=== PATIENT | male | born 1970 | race African-American/Black ===

== ENCOUNTER → 2019-01-22 | Outpatient (CLI) | payer MEDICARE ==
--- NOTE | 2019-01-22 17:42 | RADIOLOGY REPORT (SQ) ---
EXAM DESCRIPTION: CERV SP 4 OR 5 VIEWS COMPLETED DATE/TIME: 01/22/2019 5:07 pm REASON FOR STUDY: NECK PAIN COMPARISON: None. NUMBER OF VIEWS: Five views. TECHNIQUE: AP, lateral, obliques and odontoid radiographic images acquired of the cervical spine. LIMITATIONS: None. FINDINGS: MINERALIZATION: Normal. ALIGNMENT: Anatomic. VERTEBRAE: Vertebral bodies of normal height. DISCS: No significant osteophytes or sclerosis. Disc height maintained. FORAMINA: No osteophytes or foraminal narrowing. LATERAL AND POSTERIOR ELEMENTS: Facets, lateral masses and spinous processes without significant find ings. HARDWARE: None in the spine. SOFT TISSUES: No masses or calcifications. Lung apices clear. OTHER: No other significant finding. IMPRESSION: NO SIGNIFICANT RADIOGRAPHIC FINDING IN THE CERVICAL SPINE. TECHNICAL DOCUMENTATION: JOB ID: [id number] [employer]- All Rights Reserved Reading location - IP/workstation name: [email or web address]
== END ==
LOC: RAD 16:33
PROVIDERS: ATTEND Physical Medicine & Rehabilitation
DX: M54.2 Cervicalgia (principal)
CPT/HCPCS: 72050

== ENCOUNTER 2020-05-10 22:55 | Observation (INO) | payer MEDICARE, MEDICAID ==
[2020-05-10] MEDS ORDERED: NITROGLYCERIN/D5W 50 MG/250 ML RTUINJ IV PRN (23:29)
--- NOTE | 2020-05-10 23:33 | ER Document Report ---
ED Respiratory Problem - General Chief Complaint: Respiratory Distress Stated Complaint: RESPIRATORY DISTRESS Time Seen by Provider: 05/10/20 23:19 Notes: Patient is a 50-year-old male that comes emergency department by EMS for chief complaint of respiratory distress. Patient states that he was putting on his CPAP when he suddenly felt like he could not breathe at all, EMS reports that patient was tripoding, diaphoretic, initial oxygen saturation was 68% on room air, initial blood pressure was 240s systolic. Patient was given 2 sublingual nitroglycerin, placed on CPAP, placed on nitroglycerin drip, and he was transitioned to BiPAP here in the emergency department. However patient has rapidly improved, he states now his breathing is back to normal while on the BiPAP, he denies any current complaints. He denies chest pain, fever, cough, or any sick contacts. He is on multiple medications for blood pressure including carvedilol and lisinopril, he is on metformin for "borderline diabetes", he has a history of obesity and GEORGE. He denies smoking, alcohol, recreational drugs, CAD, ME, CHF, or history of the same. TRAVEL OUTSIDE OF THE [place] IN LAST 30 DAYS: No Past Medical History - General Information source: Patient - Social History Smoking Status: Former Smoker Frequency of alcohol use: None Drug Abuse: None Lives with: Family Family History: Reviewed & Not Pertinent - Past Medical History Cardiac Medical History: Reports: Hx Hypertension Endocrine Medical History: Reports: Hx Diabetes Mellitus Type 2 - Immunizations Immunizations up to date: Yes Hx Diphtheria, Pertussis, Tetanus Vaccination: Yes Review of Systems - Review of Systems Constitutional: No symptoms reported EENT: No symptoms reported Cardiovascular: See HPI Respiratory: See HPI Gastrointestinal: No symptoms reported Genitourinary: No symptoms reported Male Genitourinary: No symptoms reported Musculoskeletal: No symptoms reported Skin: No symptoms reported Hematologic/Lymphatic: No symptoms reported Neurological/Psychological: No symptoms reported Physical Exam - Vital signs Vitals: Resp Pulse Ox 31 H 99 05/10/20 22:55 05/10/20 22:55 - Notes Notes: GENERAL: Alert, interacts well. Responsive. Patient is morbidly obese. HEAD: Normocephalic, atraumatic. EYES: Pupils equal, round, and reactive to light. Extraocular movements intact. ENT: Oral mucosa moist, tongue midline. Oropharynx unremarkable. Airway patent. NECK: Full range of motion. Supple. Trachea midline. No lymphadenopathy. LUNGS: Tachypnea with slight work of breathing but lungs are clear with no rales, wheezing, or rhonchi. HEART: Regular rate and rhythm. No murmur ABDOMEN: Soft, non-tender. Non-distended. EXTREMITIES: Moves all 4 extremities spontaneously. No edema, normal radial and dorsalis pedis pulses bilaterally. No cyanosis. BACK: no cervical, thoracic, lumbar midline tenderness. No saddle anesthesia, normal distal neurovascular exam. Moves all extremities in full range of motion. NEUROLOGICAL: Alert and oriented x3. Normal speech. Cranial nerves II through XII grossly intact. Strength 5/5 in all extremities. PSYCH: Mildly anxious SKIN: Warm, dry, normal turgor. No rashes or lesions noted. Course - Re-evaluation Re-evalutation: Patient was initially extremely hypertensive, he was hypoxic at 68% on room air per EMS, he is already doing better after sublingual nitroglycerin and on the nitroglycerin drip, he was transitioned to BiPAP here. On BiPAP his work of breathing rapidly improved and then his distress completely resolved. Blood pressure trended down to the into the 160s. Lungs are clear. Patient has no complaints now. CBC, chemistry, troponin, chest x-ray, EKG without acute concerning findings. Overall presentation is most consistent with flash pulmonary edema with his severe hypertension. Discussed with Dr. Oliver. Discussed results with patient at length, patient will be discussed with hospitalist for admission for acute respiratory distress, uncontrolled hype rtension, flash pulmonary edema, hypoxia. Patient states understanding and agreement with plan. Discussed with Dr. Rowe, hospitalist, patient accepted to [facility]. - Vital Signs Vital signs: Temp Pulse Resp BP Pulse Ox 98.7 F 22 H 166/92 H 98 05/10/20 23:25 05/11/20 01:01 05/11/20 01:01 05/11/20 01:01 - Laboratory Result Diagrams: 05/10/20 23:54 05/10/20 23:54 Laboratory results interpreted by me: 05/10/20 05/10/20 05/11/20 23:54 23:54 01:32 RDW 16.8 H Creatinine 1.49 H Est GFR (MDRD) Non-Af 50 L Glucose 150 H Urine Protein 100 H - EKG Interpretation by Me Additional EKG results interpreted by me: EKG shows sinus rhythm at a rate of 85, flattened T waves laterally, no T wave inversions or ST segment changes in consecutive leads. Discharge - Discharge Clinical Impression: Hypoxia, Respiratory distress, Uncontrolled hypertension Condition: Stable Disposition: ADMITTED OBSERVATION Admitting Provider: Jae (Hospitalist) Unit Admitted: [facility]
[2020-05-11 00:12] LABS: ABSOLUTE BASOPHILS # (AUTO) 0.1 10^3/uL (0.0-0.2); ABSOLUTE EOSINOPHILS # (AUTO) 0.2 10^3/uL (0.0-0.6); ABSOLUTE MONOCYTES (AUTO) 0.7 10^3/uL (0.1-1.4); ABSOLUTE NEUT (AUTO) 7.6 10^3/uL (1.7-8.2); BASOPHILS % (AUTO) 0.6 % (0-2); EOSINOPHILS % (AUTO) 1.7 % (0-6); HEMATOCRIT 41.3 % (37.9-51.0); HEMOGLOBIN 13.8 g/dL (13.5-17.0); LYMPHOCYTES % (AUTO) 19.1 % (13-45); MEAN CORPUSCULAR HGB CONC 33.4 g/dL (32.0-36.0); MEAN CORPUSCULAR VOLUME 90 fl (80-97); MONOCYTES % (AUTO) 6.2 % (3-13); PLATELET COUNT 157 10^3/uL (150-450); RED BLOOD COUNT 4.61 10^6/uL (4.35-5.55); RED CELL DISTRIBUTION WIDTH 16.8 % (11.5-14.0); SEGMENTED NEUTROPHILS % (AUTO) 72.4 % (42-78); TOTAL CELLS COUNTED % (AUTO) 100 %; VENOUS BLOOD BASE EXCESS 1.5 mmol/L; VENOUS BLOOD HCO3 28.3 mmol/L (20-32); VENOUS BLOOD PCO2 53.1 mmHg (35-63); VENOUS BLOOD PH 7.34 (7.30-7.42); WHITE BLOOD COUNT 10.5 10^3/uL (4.0-10.5)
[2020-05-11 00:21] LABS: ALBUMIN 3.9 g/dL (3.5-5.0); ALKALINE PHOSPHATASE 106 U/L (38-126); ANION GAP 5 (5-19); ASPARTATE AMINO TRANSFERASE 24 U/L (17-59); BLOOD UREA NITROGEN 16 mg/dL (7-20); CALCIUM 8.6 mg/dL (8.4-10.2); CARBON DIOXIDE 29 mmol/L (22-30); CHLORIDE 105 mmol/L (98-107); GLUCOSE 150 mg/dL (75-110); POTASSIUM 3.6 mmol/L (3.6-5.0)
[2020-05-11 00:32] LABS: NT PRO BNP 44 pg/mL (<125)
[2020-05-11 00:36] LABS: TROPONIN I < 0.012 ng/mL
--- NOTE | 2020-05-11 00:53 | RADIOLOGY REPORT (SQ) ---
EXAM DESCRIPTION: X-ray single view chest. CLINICAL HISTORY: 50 years Male, shortness of breath, hypoxia COMPARISON: None. TECHNIQUE: Single portable x-ray view of the chest performed on 05/11/2020 at 12:14 AM FINDINGS: The lungs are well expanded and are clear. There is no evidence of a pneumothorax. The cardiac silhouette is prominent and may be accentuated by the portable technique. The mediastinal contours are normal. No acute osseous abnormality is identified. No focal soft tissue abnormalities are seen. Lines and tubes: None. IMPRESSION: No definite acute intrathoracic disease.
[2020-05-11 02:12] LABS: APPEARANCE,URINE CLEAR; BILIRUBIN,URINE NEGATIVE (NEGATIVE); COLOR,URINE YELLOW; GLUCOSE, URINE NEGATIVE (NEGATIVE); KETONES,URINE NEGATIVE (NEGATIVE); LEUKOCYTE ESTERASE,URINE NEGATIVE (NEGATIVE); NITRITE,URINE NEGATIVE (NEGATIVE); PROTEIN,URINE 100 mg/dL (NEGATIVE); URINE SPECIFIC GRAVITY 1.013; UROBILINOGEN,URINE NEGATIVE mg/dL (<2.0)
[2020-05-11] MEDS ORDERED: LORAZEPAM INJ 2 MG/1 ML VIAL IV ONE (03:53)
[2020-05-11] MEDS ORDERED: NITROGLYCERIN 2% OINTMENT 1 GM PACKET TP ONE (04:23)
[2020-05-11] MEDS ORDERED: MORPHINE SULFATE 10 MG/ML INJ IV PRN ×4 (05:06→06:37)
[2020-05-11] MEDS ORDERED: METOPROLOL TARTRATE PF/INJ 5 MG/5 ML SDV IV PRN (05:06)
[2020-05-11] MEDS ORDERED: MELATONIN 5 MG TABLET PO PRN (05:06)
[2020-05-11] MEDS ORDERED: LORAZEPAM INJ 2 MG/1 ML VIAL IV PRN (05:06)
[2020-05-11] MEDS ORDERED: GUAIFENESIN SYRP 200 MG/10 ML UDC PO PRN (05:06)
[2020-05-11] MEDS ORDERED: PROMETHAZINE HCL INJ 25 MG/1 ML VIAL IV PRN (05:06)
[2020-05-11] MEDS ORDERED: ACETAMINOPHEN 325 MG TABLET PO PRN (05:06)
[2020-05-11] MEDS ORDERED: GLUCAGON,HUMAN RECOMB 1 MG INJ IM PRN (05:07)
[2020-05-11] MEDS ORDERED: DEXTROSE 50%-WATER 25 GM/50 ML DISP.SYRIN IV PRN ×2 (05:07)
[2020-05-11] MEDS ORDERED: DEXTROSE 40% GEL 15 GM TUBE PO PRN ×2 (05:07)
--- NOTE | 2020-05-11 07:14 | PDOC H&P ---
History of Present Illness Admission Date/PCP: 05/11/2020 04:26 No local PCP Patient complains of: Dyspnea History of Present Illness: CATALINA ALBA is a 50 year old male who presented to the emergency room via EMS with acute dyspnea. He admits while he was putting on his CPAP at home for the night he suddenly felt severely dyspneic and could not breathe. He admits accompanying diaphoresis and associated with orthopnea and the need for the use of accessory muscles of respiration in order to breathe. This dyspnea is worsened by any activity or exertion. He denies other associated or a ccompanying signs and symptoms. He denies prior similar episodes. He has not identified any additional aggravating or ameliorating factors for his dyspnea. His dyspnea was improved by supplemental oxygen, CPAP, sublingual nitroglycerin and a nitroglycerin infusion provided by EMS. He had been noted to be hypoxic with an O2 sat of 68% on room air upon EMS arrival. EMS also noted that his blood pressure was 240 systolic initially. By the time he arrived to the emergency room he had improved considerably. In the ER he was converted to BiPAP and his symptoms resolved. His initial cardiac enzymes were negative and his EKG showed no evidence of acute cardiac injury or ischemia. He was sub sequently admitted to observation status for further evaluation treatment. Past Medical History Cardiac Medical History: Reports: Hypertension Denies: Coronary Artery Disease, Myocardial Infarction Pulmonary Medical History: Reports: Sleep Apnea Denies: Asthma, Chronic Obstructive Pulmonary Disease (COPD) EENT Medical History: Denies: Cataracts, Ears - Hearing aids Neurological Medical History: Denies: Hemorrhagic CVA, Ischemic CVA, Seizures Endocrine Medical History: Reports: Diabetes Mellitus Type 2 - "Borderline", Obesity Denies: Diabetes Mellitus Type 1, Hyperthyroidism, Hypothyroidism Renal/ Medical History: Denies: Chronic Kidney Disease, Nephrolithiasis Malignancy Medical History: Reports: None GI Medical History: Denies: Cirrhosis, Hepatitis Musculoskeltal Medical History: Denies: Arthritis, Gout Skin Medical History: Denies: Eczema, Psoriasis Psychiatric Medical History: Denies: Alcohol Dependency, Substance Abuse, Tobacco Dependency Traumatic Medical History: Reports: None Hematology: Denies: Anemia, Hemophilia Infectious Medical History: Reports: None Past Surgical History Past Surgical History: Reports: None Social History Information Source: Patient Lives with: Spouse/Significant other Smoking Status: Former Smoker Electronic Cigarette use?: No Frequency of Alcohol Use: None Hx Recreational Drug Use: No Drugs: None Hx Prescription Drug Abuse: No - Advance Directive Resuscitation Status: Full Code Surrogate healthcare decision maker:: Arabella Alba Family History Family History: DM, Hypertension. denies: CAD, Malignancy Parental Family History Reviewed: Yes Children Family History Reviewed: No Sibling(s) Family History Reviewed.: Yes Review of Systems Constitutional: ABSENT: chills, fever(s) Eyes: ABSENT: visual disturbances, other - Eye pain Ears: ABSENT: hearing changes, other - Ear pain Nose, Mouth, and Throat: ABSENT: headache(s), sore throat Cardiovascular: PRESENT: orthropnea. ABSENT: chest pain, palpitations Respiratory: PRESENT: dyspnea Gastrointestinal: ABSENT: abdominal pain, constipation, diarrhea, nausea, vomiting Genitourinary: ABSENT: dysuria, hematuria Musculoskeletal: ABSENT: back pain, joint swelling Integumentary: ABSENT: pruritus, rash Neurological: ABSENT: confusion, convulsions, focal weakness, memory loss, syncope Psychiatric: ABSENT: anxiety, depression Endocrine: ABSENT: cold intolerance, heat intolerance Hematologic/Lymphatic: ABSENT: easy bleeding, easy bruising Allergic/Immunologic: ABSENT: seasonal rhinorrhea Physical Exam Vital Signs: Temp Pulse Resp BP Pulse Ox 98.7 F 22 H 166/92 H 98 05/10/20 23:25 05/11/20 01:01 05/11/20 01:01 05/11/20 01:01 Intake & Output 05/09/20 05/10/20 05/11/20 23:59 23:59 23:59 Weight 191.2 kg General appearance: PRESENT: no acute distress, cooperative, morbidly obese Head exam: PRESENT: atraumatic, normocephalic Eye exam: PRESENT: conjunctiva pink. ABSENT: conjunctival injection, scleral icterus Ear exam: PRESENT: normal external ear exam. ABSENT: bleeding, drainage Mouth exam: PRESENT: dry mucosa, neck supple Neck exam: ABSENT: thyromegaly, tracheal deviation Respiratory exam: PRESENT: clear to auscultation raad, symmetrical, unlabored Cardiovascular exam: PRESENT: RRR. ABSENT: clicks, gallop, rubs Pulses: PRESENT: normal radial pulses, normal dorsalis pedis pul Vascular exam: PRESENT: normal capillary refill. ABSENT: pallor GI/Abdominal exam: PRESENT: normal bowel sounds, soft Rectal exam: PRESENT: deferred Extremities exam: ABSENT: joint swelling, pedal edema Musculoskeletal exam: ABSENT: deformity, dislocation Neurological exam: PRESENT: alert, oriented to person, oriented to place, oriented to time, oriented to situation, CN II-XII grossly intact. ABSENT: motor sensory deficit Psychiatric exam: PRESENT: appropriate affect, normal mood Skin exam: PRESENT: dry, intact, warm. ABSENT: jaundice, rash, urticaria Results Laboratory Results: 05/10/20 23:54 05/10/20 23:54 05/10/20 05/10/20 05/10/20 23:54 23:54 23:54 WBC 10.5 RBC 4.61 Hgb 13.8 Hct 41.3 MCV 90 MCH 30.0 MCHC 33.4 RDW 16.8 H Plt Count 157 Seg Neutrophils % 72.4 VBG pH 7.34 VBG pCO2 53.1 VBG HCO3 28.3 VBG Base Excess 1.5 Sodium 138.9 Potassium 3.6 Chloride 105 Carbon Dioxide 29 Anion Gap 5 BUN 16 Creatinine 1.49 H Est GFR ( Amer) > 60 Glucose 150 H Calcium 8.6 Total Bilirubin 1.0 AST 24 Alkaline Phosphatase 106 Total Protein 7.0 Albumin 3.9 Urine Color Urine Appearance Urine pH Ur Specific Parshall Urine Protein Urine Glucose (UA) Urine Ketones Urine Blood Urine Nitrite Ur Leukocyte Esterase Urine WBC (Auto) Urine RBC (Auto) 05/11/20 01:32 WBC RBC Hgb Hct MCV MCH MCHC RDW Plt Count Seg Neutrophils % VBG pH VBG pCO2 VBG HCO3 VBG Base Excess Sodium Potassium Chloride Carbon Dioxide Anion Gap BUN Creatinine Est GFR ( Amer) Glucose Calcium Total Bilirubin AST Alkaline Phosphatase Total Protein Albumin Urine Color YELLOW Urine Appearance CLEAR Urine pH 5.0 Ur Specific Parshall 1.013 Urine Protein 100 H Urine Glucose (UA) NEGATIVE Urine Ketones NEGATIVE Urine Blood NEGATIVE Urine Nitrite NEGATIVE Ur Leukocyte Esterase NEGATIVE Urine WBC (Auto) 2 Urine RBC (Auto) 0 05/10/20 23:54 Troponin I < 0.012 NT-Pro-B Natriuret Pep 44 Impressions: Chest X-Ray 05/10/20 23:28 IMPRESSION: No definite acute intrathoracic disease. Assessment and Plan - Diagnosis (1) Acute respiratory failure with hypoxia Is this a current diagnosis for this admission?: Yes (2) Acute pulmonary edema with congestive heart failure Is this a current diagnosis for this admission?: Yes (3) Uncontrolled hypertension Is this a current diagnosis for this admission?: Yes (4) Obstructive sleep apnea on CPAP Is this a current diagnosis for this admission?: Yes (5) Morbid obesity with BMI of 50.0-59.9, adult Is this a current diagnosis for this admission?: Yes - Plan Summary Summary: Patient is admitted to observation status on the [facility] where he will receive routine supportive and symptomatic cares. He will be admitted on the congestive heart failure protocol. Dr. Omer will be consulted for cardiology evaluation and a echocardiogram will be obtained. Patient will be treated with morphine sulfate 2 mg IV every hour as needed severe dyspnea (acute pulmonary edema). He will be maintained on nitroglycerin 2% ointment 1 inch every 6 hours. He will additionally receive appropriate antihypertensive/congestive heart failure therapy. Before meals and at bedtime Accu-Cheks will be obtained with sliding scale insulin for hyperglycemia and a hypoglycemic protocol in place. He will receive supplemental oxygen utilizing nasal cannula with use of noninvasive airway pressure support devices as needed to maintain adequate oxygen saturation. Patient will be continued on CPAP at night and while resting during the day. Serial cardiac enzymes will be obtained. A BNP, thyroid profile, lipid profile and hemoglobin A1c will be obtained. CBCs, metabolic profiles and magnesium levels will be obtained as needed. Additional laboratory and/or radiographic evaluations will be obtained as appropriate. - Time Time Spent with patient: 15-24 minutes Medications reviewed and adjusted accordingly: Yes Anticipated discharge: Home with Homehealth Within: within 48 hours - Inpatient Certification Based on my medical assessment, after consideration of the patient's comorbidities, presenting symptoms, or acuity I expect that the services needed warrant INPATIENT care.: No I certify that my determination is in accordance with my understanding of Medicare's requirements for reasonable and necessary INPATIENT services [42 CFR 412.3e].: No
[2020-05-11] MEDS: NITROGLYCERIN 2% OINTMENT 1 GM PACKET TP SCH ×2 (07:39→11:45)
[2020-05-11] MEDS: HEPARIN SOD (PORCINE) 5,000 UNIT/ML 1 ML VIAL SUBCUT SCH ×3 (07:40→21:10)
[2020-05-11] MEDS: HYDRALAZINE HCL INJ/PF 20 MG/1 ML SDV IV PRN ×3 (07:40→23:10)
--- NOTE | 2020-05-11 07:47 | EKG REPORT ---
SEVERITY:- ABNORMAL ECG - SINUS RHYTHM NONSPECIFIC T ABNORMALITIES, LATERAL LEADS : Confirmed by: Duncan Friedman MD 11-May-2020 07:47:25
[2020-05-11 08:31] LABS: CREATINE KINASE MB 1.43 ng/mL (<4.55); TROPONIN I 0.015 ng/mL
[2020-05-11] MEDS: INSULIN REG, HUMAN 100 UNIT/ML 3 ML VIAL (PYX) SUBCUT SCH ×4 (08:44→21:00)
[2020-05-11] MEDS ORDERED: LISINOPRIL 10 MG TABLET PO SCH ×2 (10:00→15:00)
[2020-05-11] MEDS: METOPROLOL SUCCINATE 50 MG TAB.SR.24H PO SCH ×2 (10:01→21:08)
[2020-05-11] MEDS: CLOPIDOGREL BISULFATE 75 MG TABLET PO SCH (10:01)
[2020-05-11] MEDS: FAMOTIDINE 20 MG TABLET PO SCH ×2 (10:01→21:08)
[2020-05-11 11:56] LABS: CREATINE KINASE MB 1.45 ng/mL (<4.55)
[2020-05-11 11:57] LABS: TROPONIN I < 0.012 ng/mL
[2020-05-11] MEDS ORDERED: HYDROXYZINE PAMOATE 50 MG CAPSULE PO PRN (14:03)
[2020-05-11] MEDS: OXYCODONE-ACETAMINOPHEN 5-325 MG TABLET PO SCH ×3 (14:26→21:05)
[2020-05-11] MEDS: OXYCODONE HCL IR 5 MG TABLET PO SCH ×3 (15:38→21:06)
[2020-05-11 16:10] LABS: CREATINE KINASE MB 1.69 ng/mL (<4.55)
[2020-05-11 16:12] LABS: TROPONIN I < 0.012 ng/mL
[2020-05-11] MEDS ORDERED: SIMETHICONE 80 MG TAB.CHEW PO ONE (16:30)
--- NOTE | 2020-05-11 17:07 | XCELERA REPORT ---
[address] [address] Transthoracic Echocardiogram Report Name: CATALINA ALBA Age: 50 yrs Gender: Male : 1970 Patient Status: [facility] Date: 05/11/2020 10:31 AM Height: 71 in Weight: 421 lb BSA: 2.9 m2 Procedure: A complete two-dimensional transthoracic echocardiogram was performed (2D, M-mode, spectral and color flow Doppler). The study was technically difficult with many images being suboptimal in quality. Limited views due to increased patient body habitus. Reason For Study: Acute pulmonary edema with congestive heart failur Ordering Physician: EMIL MUSTAFA Performed By: Edwina Mo Interpretation Summary Technically limited study with suboptimal windows. The left ventricle is moderately dilated. The left ventricular ejection fraction is normal. The Ejection Fraction estimate is 55-60%. Doppler measurements suggest normal left ventricular diastolic function. Regional wall motion abnormalities cannot be excluded due to limited visualization. Valvular structures are not well visualized. Right VentricleSmall, hemodynamically insignificant anterior pericardial effusion. No prior studies for comparison. MMode/2D Measurements & Calculations RVDd: 2.2 cm LVIDd: 6.2 cm FS: 37.2 % Ao root diam: 3.1 cm IVSd: 1.3 cm LVIDs: 3.9 cm EDV(Teich): 192.6 ml Ao root area: 7.8 cm2 LVPWd: 1.3 cm ESV(Teich): 65.1 ml LA dimension: 4.0 cm EF(Teich): 66.2 % Doppler Measurements & Calculations MV E max jose: MV P1/2t max jose: Ao V2 max: LV V1 max P.2 cm/sec 102.2 cm/sec 180.3 cm/sec 7.9 mmHg MV A max jose: MV P1/2t: 60.7 msec Ao max PG: LV V1 max: 87.9 cm/sec MVA(P1/2t): 3.6 cm2 13.0 mmHg 140.2 cm/sec MV E/A: 1.2 MV dec slope: 493.1 cm/sec2 MV dec time: 0.20 sec PA V2 max: MV P1/2t-pr_phl: 111.1 cm/sec 60.7 msec PA max P.9 mmHg Left Ventricle The left ventricle is moderately dilated. The left ventricular ejection fraction is normal. The Ejection Fraction estimate is 55-60%. Doppler measurements suggest normal left ventricular diastolic function. Regional wall motion abnormalities cannot be excluded due to limited visualization. Right Ventricle The right ventricle is not well visualized secondary to technical limitations. Atria Right atrium not well visualized secondary to technical limitations. Borderline left atrial enlargement. A patent foramen ovale is suspected. Mitral Valve The mitral valve is not well visualized. There is no evidence of mitral valve prolapse. There is no mitral valve stenosis. Aortic Valve The aortic valve is not well visualized secondary to technical limitations. There is no aortic valve stenosis. No aortic regurgitation is present. Tricuspid Valve The tricuspid valve is not well visualized secondary to technical limitations. Can not exclude trace TR. Pulmonic Valve The pulmonic valve is not well visualized. Can not exclude IL. Effusions Small, hemodynamically insignificant anterior pericardial effusion. : EMIL MUSTAFA Antonio
[2020-05-11] MEDS ORDERED: FUROSEMIDE INJ/PF 20 MG/2 ML SDV IV ONE (17:30)
[2020-05-11] MEDS: METFORMIN HCL 500 MG TABLET PO SCH (17:38)
[2020-05-11] MEDS: BUPROPION HCL 75 MG TABLET PO SCH (17:38)
[2020-05-11] MEDS ORDERED: (PENDING PHARMACY ID) (Oxycodone Hcl/Acetaminophen [Percocet 10-325 Mg Tablet] 1 EACH) PO SCH (18:00)
--- NOTE | 2020-05-11 18:10 | EKG REPORT ---
SEVERITY:- BORDERLINE ECG - SINUS RHYTHM NONSPECIFIC ST-T CHANGES- INFERIOR LEADS : Confirmed by: Duncan Friedman MD 11-May-2020 18:08:59
[2020-05-11 18:35] LABS: TROPONIN I < 0.012 ng/mL
[2020-05-11] MEDS ORDERED: ALBUTEROL SULFATE 0.083% NEB 2.5 MG/3 ML AMPUL NEB PRN (18:51)
--- NOTE | 2020-05-11 18:55 | Progress Note ---
Provider Note Provider Note: Is a 50-year-old male with a past medical history of hypertension, sleep apnea (utilizes CPAP machine), DM 2, morbid obesity who was admitted early this morning by the decatizer for Acute respiratory failure with hypoxia, hypertensive urgency, and presumed pulmonary edema related to CHF exacerbation. Overnight events, vital signs, laboratory results, imaging, H&P, and orders reviewed. Agree with the plan of care as established by the previous provider. In addition: Echocardiogram reveals LVEF 55 to 60% without significant LV diastolic dysfunction. Discontinue nitroglycerin paste secondary to persistent headache. Resumed home medication regiment including lisinopril/HCTZ and losartan for blood pressure management. One-time dose of IV furosemide. Resume home dose metformin Home dose Wellbutrin, Home dose oxycodone Home dose Singulair. Start scheduled and as needed nebulizer treatments.
[2020-05-11] MEDS: IPRATROPIUM/ALBUTEROL 0.5-2.5 MG/3 ML AMPUL NEB SCH (20:55)
[2020-05-12] MEDS: IPRATROPIUM/ALBUTEROL 0.5-2.5 MG/3 ML AMPUL NEB SCH ×4 (02:13→20:41)
[2020-05-12] MEDS: HEPARIN SOD (PORCINE) 5,000 UNIT/ML 1 ML VIAL SUBCUT SCH ×3 (05:59→21:52)
[2020-05-12 06:43] LABS: ABSOLUTE EOSINOPHILS # (AUTO) 0.3 10^3/uL (0.0-0.6); ABSOLUTE LYMPHOCYTES (AUTO) 2.5 10^3/uL (0.5-4.7); ABSOLUTE MONOCYTES (AUTO) 0.7 10^3/uL (0.1-1.4); ABSOLUTE NEUT (AUTO) 8.2 10^3/uL (1.7-8.2); BASOPHILS % (AUTO) 0.4 % (0-2); EOSINOPHILS % (AUTO) 2.2 % (0-6); HEMOGLOBIN 14.5 g/dL (13.5-17.0); LYMPHOCYTES % (AUTO) 21.5 % (13-45); MEAN CORPUSCULAR HEMOGLOBIN 29.6 pg (27.0-33.4); MEAN CORPUSCULAR HGB CONC 32.9 g/dL (32.0-36.0); MEAN CORPUSCULAR VOLUME 90 fl (80-97); MONOCYTES % (AUTO) 5.9 % (3-13); PLATELET COUNT 166 10^3/uL (150-450); RED BLOOD COUNT 4.89 10^6/uL (4.35-5.55); RED CELL DISTRIBUTION WIDTH 16.9 % (11.5-14.0); TOTAL CELLS COUNTED % (AUTO) 100 %; WHITE BLOOD COUNT 11.7 10^3/uL (4.0-10.5)
[2020-05-12 06:59] LABS: ANION GAP 7 (5-19); BLOOD UREA NITROGEN 17 mg/dL (7-20); CALCIUM 9.3 mg/dL (8.4-10.2); CARBON DIOXIDE 27 mmol/L (22-30); CHLORIDE 106 mmol/L (98-107); CHOLESTEROL 142.57 mg/dL (0-200); GLUCOSE 124 mg/dL (75-110); POTASSIUM 4.2 mmol/L (3.6-5.0); TRIGLYCERIDES 98 mg/dL (<150)
[2020-05-12 07:09] LABS: DIRECT LDL 75 mg/dL (<100)
[2020-05-12 07:15] LABS: FREE T3 4.23 pg/mL (2.77-5.27)
[2020-05-12 07:29] LABS: THYROID STIMULATING HORMONE 1.77 uIU/mL (0.47-4.68)
[2020-05-12] MEDS ORDERED: (PENDING PHARMACY ID) (Bupropion Hcl [Bupropion Xl] 150 MG) PO SCH (08:00)
[2020-05-12] MEDS: INSULIN REG, HUMAN 100 UNIT/ML 3 ML VIAL (PYX) SUBCUT SCH ×4 (08:44→21:56)
[2020-05-12] MEDS: LISINOPRIL 10 MG TABLET PO SCH (09:31)
[2020-05-12] MEDS: FAMOTIDINE 20 MG TABLET PO SCH ×2 (09:31→21:56)
[2020-05-12] MEDS: METOPROLOL SUCCINATE 50 MG TAB.SR.24H PO SCH ×2 (09:31→21:54)
[2020-05-12] MEDS: METFORMIN HCL 500 MG TABLET PO SCH ×2 (09:31→18:17)
[2020-05-12] MEDS: MONTELUKAST SODIUM 10 MG TABLET PO SCH (09:32)
[2020-05-12] MEDS: HYDROCHLOROTHIAZIDE 12.5 MG TABLET PO SCH (09:32)
[2020-05-12] MEDS: CLOPIDOGREL BISULFATE 75 MG TABLET PO SCH (09:32)
[2020-05-12] MEDS: BUPROPION HCL 75 MG TABLET PO SCH ×2 (09:32→18:17)
[2020-05-12] MEDS: POTASSIUM CHLORIDE 10 MEQ TABLET.ER PO SCH (09:32)
[2020-05-12] MEDS: ATORVASTATIN CALCIUM 40 MG TABLET PO SCH (09:32)
[2020-05-12] MEDS: OXYCODONE-ACETAMINOPHEN 5-325 MG TABLET PO SCH ×4 (09:34→21:55)
[2020-05-12] MEDS: OXYCODONE HCL IR 5 MG TABLET PO SCH ×4 (09:35→21:52)
[2020-05-12] MEDS ORDERED: (PENDING PHARMACY ID) (Potassium Citrate [Potassium Citrate Er] 10 MEQ) PO SCH (10:00)
[2020-05-12] MEDS ORDERED: (PENDING PHARMACY ID) (Lisinopril/Hydrochlorothiazide [Lisinopril-Hctz 20-12.5 Mg Tab] 1 E PO SCH (10:00)
[2020-05-12] MEDS ORDERED: LISINOPRIL 10 MG TABLET PO SCH (10:00)
[2020-05-12] MEDS ORDERED: (PENDING PHARMACY ID) (Metformin Hcl [Metformin Hcl Er] 500 MG) PO SCH (10:00)
[2020-05-12] MEDS ORDERED: ALBUTEROL SULFATE 0.083% NEB 2.5 MG/3 ML AMPUL NEB PRN (10:53)
--- NOTE | 2020-05-12 11:52 | PDOC PROGRESS REPORT ---
Subjective Progress Note for:: 05/12/20 Subjective:: Patient states his breathing is a little bit better today. Still has dyspnea on exertion. Denies any chest pain. States that he has never smoked in his life. States his mother has a history of COPD but he does not carry any COPD diagnosis. Reason For Visit: ACUTE RESPIRATORY FAILURE WITH HYPOXIA,ACUTE Physical Exam Vital Signs: Temp Pulse Resp BP Pulse Ox 98.2 F 59 L 19 138/66 H 100 05/12/20 11:21 05/12/20 11:21 05/12/20 11:21 05/12/20 11:21 05/12/20 11:21 Intake & Output 05/11/20 05/12/20 05/13/20 06:59 06:59 06:59 Intake Total 250 2070 Output Total 2295 350 Balance 250 -225 -350 Weight 191.2 kg 185.9 kg General appearance: PRESENT: no acute distress, cooperative, morbidly obese, well-nourished Head exam: PRESENT: normocephalic Neck exam: ABSENT: JVD Respiratory exam: PRESENT: clear to auscultation raad, decreased breath sounds, symmetrical, unlabored. ABSENT: tachypnea, wheezes GI/Abdominal exam: PRESENT: normal bowel sounds, soft. ABSENT: rebound, rigid, tenderness Extremities exam: PRESENT: pedal edema Neurological exam: PRESENT: alert, awake, oriented to person, oriented to place, oriented to time Psychiatric exam: ABSENT: agitated, anxious Results Laboratory Results: 05/12/20 05:33 05/12/20 05:33 05/12/20 05/12/20 05/12/20 05:33 05:33 05:33 WBC 11.7 H RBC 4.89 Hgb 14.5 Hct 44.0 MCV 90 MCH 29.6 MCHC 32.9 RDW 16.9 H Plt Count 166 Seg Neutrophils % 70.0 Sodium 139.9 Potassium 4.2 Chloride 106 Carbon Dioxide 27 Anion Gap 7 BUN 17 Creatinine 1.32 H Est GFR ( Amer) > 60 Glucose 124 H Calcium 9.3 Magnesium 2.2 Triglycerides 98 Cholesterol 142.57 LDL Cholesterol Direct 75 VLDL Cholesterol 20.0 HDL Cholesterol 47 TSH 1.77 Free T3 pg/mL 4.23 05/10/20 05/11/20 05/11/20 23:54 07:15 07:15 Creatine Kinase 202 H CK-MB (CK-2) 1.43 Troponin I < 0.012 0.015 NT-Pro-B Natriuret Pep 44 05/11/20 05/11/20 05/11/20 11:06 11:06 14:42 Creatine Kinase 195 H 231 H CK-MB (CK-2) 1.45 Troponin I < 0.012 NT-Pro-B Natriuret Pep 05/11/20 05/11/20 05/11/20 14:42 17:50 17:50 Creatine Kinase 246 H CK-MB (CK-2) 1.69 1.80 Troponin I < 0.012 < 0.012 NT-Pro-B Natriuret Pep 05/12/20 05:33 Creatine Kinase CK-MB (CK-2) Troponin I NT-Pro-B Natriuret Pep 48 Impressions: Chest X-Ray 05/10/20 23:28 IMPRESSION: No definite acute intrathoracic disease. Assessment and Plan - Diagnosis (1) Respiratory distress Is this a current diagnosis for this admission?: Yes (2) Hypoxia Is this a current diagnosis for this admission?: Yes (3) Morbid obesity with BMI of 50.0-59.9, adult Is this a current diagnosis for this admission?: Yes (4) Obstructive sleep apnea on CPAP Is this a current diagnosis for this admission?: Yes (5) Uncontrolled hypertension Is this a current diagnosis for this admission?: Yes - Plan Summary Summary: Patient was admitted for treatment of respiratory distress with hypoxia. He was initially started on diuretics IV with suspicion of CHF. However, I have reviewed patient's echo done yesterday which, though suboptimal and highly limited in terms of visualization of structures, seems to show normal left ventricular systolic and diastolic function. Also BNP is 48 which essentially rules out congestive heart failure. Chest x-ray is negative for any airspace disease or pulmonary edema. I have discontinued diuretics. Patient has family history of COPD but denies any personal history of COPD or smoking. I believe the patient likely has obesity hypoventilation syndrome which is the cause of patient's dyspnea, fatigue and possibly his hypoxia as well. I will check a complete pulmonary function test with suspicion of restrictive lung disease playing a role here. Continue CPAP for patient's GEORGE. Continue inhalers. We will attempt to wean nasal cannula. Continue antihypertensives. - Time Time Spent with patient: Less than 15 minutes
[2020-05-13] MEDS: IPRATROPIUM/ALBUTEROL 0.5-2.5 MG/3 ML AMPUL NEB SCH ×2 (01:14→08:10)
[2020-05-13] MEDS: HEPARIN SOD (PORCINE) 5,000 UNIT/ML 1 ML VIAL SUBCUT SCH (06:42)
[2020-05-13] MEDS: LISINOPRIL 10 MG TABLET PO SCH (10:10)
[2020-05-13] MEDS: HYDROCHLOROTHIAZIDE 12.5 MG TABLET PO SCH (10:11)
[2020-05-13] MEDS: ATORVASTATIN CALCIUM 40 MG TABLET PO SCH (10:11)
[2020-05-13] MEDS: POTASSIUM CHLORIDE 10 MEQ TABLET.ER PO SCH (10:11)
[2020-05-13] MEDS: METFORMIN HCL 500 MG TABLET PO SCH (10:12)
[2020-05-13] MEDS: INSULIN REG, HUMAN 100 UNIT/ML 3 ML VIAL (PYX) SUBCUT SCH ×2 (10:13→12:21)
[2020-05-13] MEDS: CLOPIDOGREL BISULFATE 75 MG TABLET PO SCH (10:14)
[2020-05-13] MEDS: MONTELUKAST SODIUM 10 MG TABLET PO SCH (10:14)
[2020-05-13] MEDS: METOPROLOL SUCCINATE 50 MG TAB.SR.24H PO SCH (10:14)
[2020-05-13] MEDS: FAMOTIDINE 20 MG TABLET PO SCH (10:15)
[2020-05-13] MEDS: OXYCODONE-ACETAMINOPHEN 5-325 MG TABLET PO SCH (10:15)
[2020-05-13] MEDS: OXYCODONE HCL IR 5 MG TABLET PO SCH (10:16)
[2020-05-13] MEDS: BUPROPION HCL 75 MG TABLET PO SCH (10:16)
[2020-05-13 11:54] VITALS: BP 116/68
--- NOTE | 2020-05-13 12:25 | PDOC DISCHARGE SUMMARY ---
Impression - Admit/DC Date/PCP Admission Date/Primary Care Provider: 05/11/20 04:31 MINDY JHA PA-C Discharge Date: 05/13/20 - Discharge Diagnosis (1) COPD (chronic obstructive pulmonary disease) with emphysema Is this a current diagnosis for this admission?: Yes (2) Restrictive lung disease secondary to obesity Is this a current diagnosis for this admission?: Yes (3) Respiratory distress Is this a current diagnosis for this admission?: Yes (4) Hypoxia Is this a current diagnosis for this admission?: Yes (5) Morbid obesity with BMI of 50.0-59.9, adult Is this a current diagnosis for this admission?: Yes (6) Obstructive sleep apnea on CPAP Is this a current diagnosis for this admission?: Yes (7) Uncontrolled hypertension Is this a current diagnosis for this admission?: Yes - Assessment Summary: Patient was admitted for treatment of respiratory distress with hypoxia. He was initially started on diuretics IV with suspicion of CHF. However, I have reviewed patient's echo done yesterday which, though suboptimal and highly limited in terms of visualization of structures, seems to show normal left ventricular systolic and diastolic function. Also BNP is 48 which essentially rules out congestive heart failure. Chest x-ray is negative for any airspace disease or pulmonary edema. I have discontinued diuretics. Patient has family history of COPD but denies any personal history of COPD or smoking. I believe the patient likely has obesity hypoventilation syndrome which is the cause of patient's dyspnea, fatigue and possibly his hypoxia as well. I will check a complete pulmonary function test with suspicion of restrictive lung disease playing a role here. Continue CPAP for patient's GEORGE. Continue inhalers. We will attempt to wean nasal cannula. Continue antihypertensives. - Additional Information Resuscitation Status: Full Code Discharge Diet: Regular Referrals: MINDY JHA PA-C [Primary Care Provider] - AMY GUILLEN MD [ACTIVE STAFF] - LCARISSA,NO [NO LOCAL MD] - Follow up as needed Prescriptions: Umeclidinium Brm/Vilanterol Tr [Anoro Ellipta 62.5-25 Mcg INH] 1 each IH DAILY #1 inhaler Lisinopril/Hydrochlorothiazide [Lisinopril-Hctz 20-12.5 mg Tab] 2 each PO DAILY #60 Albuterol Sulfate [Proair Respiclick] 2 puff IH Q6HP PRN #2 inh PRN Reason: Home Medications: Atorvastatin Calcium [Lipitor 40 mg Tablet] 40 mg PO DAILY 05/11/20 Bupropion HCl [Bupropion Xl] 150 mg PO QAM 05/11/20 Carvedilol [Coreg 6.25 mg Tablet] 6.25 mg PO DAILY 05/11/20 Hydroxyzine Pamoate [Vistaril 50 mg Capsule] 50 mg PO Q8HP PRN 05/11/20 Metformin HCl [Metformin HCl ER] 500 mg PO DAILY 05/11/20 Montelukast Sodium 10 mg PO DAILY 05/11/20 Oxycodone HCl/Acetaminophen [Percocet 10-325 mg Tablet] 1 each PO QID 05/11/20 Potassium Citrate [Potassium Citrate ER] 10 meq PO DAILY 05/11/20 Albuterol Sulfate [Proair Respiclick] 2 puff IH Q6HP PRN #2 inh 05/13/20 Lisinopril/Hydrochlorothiazide [Lisinopril-Hctz 20-12.5 mg Tab] 2 each PO DAILY #60 05/13/20 Umeclidinium Brm/Vilanterol Tr [Anoro Ellipta 62.5-25 Mcg INH] 1 each IH DAILY #1 inhaler 05/13/20 History of Present Illiness History of Present Illness: According to admitting provider: CATALINA ALBA is a 50 year old male who presented to the emergency room via EMS with acute dyspnea. He admits while he was putting on his CPAP at home for the night he suddenly felt severely dyspneic and could not breathe. He admits accompanying diaphoresis and associated with orthopnea and the need for the use of accessory muscles of respiration in order to breathe. This dyspnea is worsened by any activity or exertion. He denies other associated or accompanying signs and symptoms. He denies prior similar episodes. He has not identified any additional aggravating or ameliorating factors for his dyspnea. His dyspnea was improved by supplemental oxygen, CPAP, sublingual nitroglycerin and a nitroglycerin infusion provided by EMS. He had been noted to be hypoxic with an O2 sat of 68% on room air upon EMS arrival. EMS also noted that his blood pressure was 240 systolic initially. By the time he arrived to the emergency room he had improved considerably. In the ER he was converted to BiPAP and his symptoms resolved. His initial cardiac enzymes were negative and his EKG showed no evidence of acute cardiac injury or ischemia. He was subsequently admitted to observation status for further evaluation treatment. Hospital Course Hospital Course: Patient was admitted to the hospital for evaluation of respiratory distress and hypoxia. Hypoxia later resolved during admission. Chest x-ray showed no evidence of interstitial changes and no evidence of pneumonia and was essentially clear. D-dimer was negative making blood clot/pulmonary embolism very unlikely. Patient was initially admitted and given diuresis with suspicion of potential congestive heart failure secondary to uncontrolled hypertension. However, I feel that patient does not have congestive heart failure given normal BNP in the 40s which essentially rules it out as well as echocardiogram, though suboptimal study with several limitations, showed normal left ventricular function. I have discontinued diuresis. I also send patient for pulmonary function test with suspicion that patient has restrictive lung disease from obesity. Patient had a complete pulmonary function test performed which showed FEV1/FVC ratio of 69% pre-bronchodilator and 70% postbronchodilator, with FEV1 in the 40s indicating of severe obstruction, DLCO also very diminished in the 40s and total lung capacity also significantly reduced. His PFT suggest that patient has COPD/emphysema likely from secondhand smoke inhalation as he was never a smoker but lived his life around his brother who smoked significantly. His PFT also suggest restrictive lung disease which I do suspect to be from obesity. I have started patient on Anoro Ellipta as well as albuterol as needed. I have referred patient to see Dr. Guillen in the office for further management of his lung diseases and to set patient up for high-resolution CT scan for further evaluation of his restrictive lung disease. Patient is being discharged in stable conditions. Physical Exam Vital Signs: Temp Pulse Resp BP Pulse Ox 98.6 F 68 16 116/68 100 05/13/20 11:11 05/13/20 11:11 05/13/20 11:11 05/13/20 11:11 05/13/20 11:11 Intake & Output 05/12/20 05/13/20 05/14/20 06:59 06:59 06:59 Intake Total 6230 1240 Output Total 9145 2493 Balance -225 -645 Weight 185.9 kg 187.4 kg General appearance: PRESENT: no acute distress, cooperative, morbidly obese, wel l-nourished Respiratory exam: PRESENT: decreased breath sounds, symmetrical, unlabored. ABSENT: tachypnea, wheezes Musculoskeletal exam: PRESENT: ambulatory Neurological exam: PRESENT: alert, awake, oriented to person, oriented to place, oriented to time, oriented to situation Psychiatric exam: ABSENT: agitated, anxious Results Laboratory Results: WBC 11.7 10^3/uL (4.0-10.5) H 05/12/20 05:33 RBC 4.89 10^6/uL (4.35-5.55) 05/12/20 05:33 Hgb 14.5 g/dL (13.5-17.0) 05/12/20 05:33 Hct 44.0 % (37.9-51.0) 05/12/20 05:33 MCV 90 fl (80-97) 05/12/20 05:33 MCH 29.6 pg (27.0-33.4) 05/12/20 05:33 MCHC 32.9 g/dL (32.0-36.0) 05/12/20 05:33 RDW 16.9 % (11.5-14.0) H 05/12/20 05:33 Plt Count 166 10^3/uL (150-450) 05/12/20 05:33 Lymph % (Auto) 21.5 % (13-45) 05/12/20 05:33 Williamson % (Auto) 5.9 % (3-13) 05/12/20 05:33 Eos % (Auto) 2.2 % (0-6) 05/12/20 05:33 Baso % (Auto) 0.4 % (0-2) 05/12/20 05:33 Absolute Neuts (auto) 8.2 10^3/uL (1.7-8.2) 05/12/20 05:33 Absolute Lymphs (auto) 2.5 10^3/uL (0.5-4.7) 05/12/20 05:33 Absolute Monos (auto) 0.7 10^3/uL (0.1-1.4) 05/12/20 05:33 Absolute Eos (auto) 0.3 10^3/uL (0.0-0.6) 05/12/20 05:33 Absolute Basos (auto) 0.0 10^3/uL (0.0-0.2) 05/12/20 05:33 Seg Neutrophils % 70.0 % (42-78) 05/12/20 05:33 D-Dimer 0.45 ug/mL (0.00-0.50) 05/10/20 23:54 VBG pH 7.34 (7.30-7.42) 05/10/20 23:54 VBG pCO2 53.1 mmHg (35-63) 05/10/20 23:54 VBG HCO3 28.3 mmol/L (20-32) 05/10/20 23:54 VBG Base Excess 1.5 mmol/L 05/10/20 23:54 Sodium 139.9 mmol/L (137-145) 05/12/20 05:33 Potassium 4.2 mmol/L (3.6-5.0) 05/12/20 05:33 Chloride 106 mmol/L (98-107) 05/12/20 05:33 Carbon Dioxide 27 mmol/L (22-30) 05/12/20 05:33 Anion Gap 7 (5-19) 05/12/20 05:33 BUN 17 mg/dL (7-20) 05/12/20 05:33 Creatinine 1.32 mg/dL (0.52-1.25) H 05/12/20 05:33 Est GFR ( Amer) > 60 (>60) 05/12/20 05:33 Est GFR (MDRD) Non-Af 57 (>60) L 05/12/20 05:33 Glucose 124 mg/dL (75-110) H 05/12/20 05:33 POC Glucose 101 mg/dL (70-110) 05/13/20 12:09 Hemoglobin A1c % 5.8 % (4.7-6.0) 05/12/20 05:33 Calcium 9.3 mg/dL (8.4-10.2) 05/12/20 05:33 Magnesium 2.2 mg/dL (1.6-2.3) 05/12/20 05:33 Total Bilirubin 1.0 mg/dL (0.2-1.3) 05/10/20 23:54 Direct Bilirubin 0.0 mg/dL (0.0-0.4) 05/10/20 23:54 Neonat Total Bilirubin Not Reportable 05/10/20 23:54 Neonat Direct Bilirubin Not Reportable 05/10/20 23:54 Neonat Indirect Bili Not Reportable 05/10/20 23:54 AST 24 U/L (17-59) 05/10/20 23:54 ALT 26 U/L (<50) 05/10/20 23:54 Alkaline Phosphatase 106 U/L (38-126) 05/10/20 23:54 Creatine Kinase 246 U/L (55-170) H 05/11/20 17:50 CK-MB (CK-2) 1.80 ng/mL (<4.55) 05/11/20 17:50 Troponin I < 0.012 ng/mL 05/11/20 17:50 NT-Pro-B Natriuret Pep 48 pg/mL (<125) 05/12/20 05:33 Total Protein 7.0 g/dL (6.3-8.2) 05/10/20 23:54 Albumin 3.9 g/dL (3.5-5.0) 05/10/20 23:54 Triglycerides 98 mg/dL (<150) 05/12/20 05:33 Cholesterol 142.57 mg/dL (0-200) 05/12/20 05:33 LDL Cholesterol Direct 75 mg/dL (<100) 05/12/20 05:33 VLDL Cholesterol 20.0 mg/dL (10-31) 05/12/20 05:33 HDL Cholesterol 47 mg/dL (>40) 05/12/20 05:33 TSH 1.77 uIU/mL (0.47-4.68) 05/12/20 05:33 Free T3 pg/mL 4.23 pg/mL (2.77-5.27) 05/12/20 05:33 Urine Color YELLOW 05/11/20 01:32 Urine Appearance CLEAR 05/11/20 01:32 Urine pH 5.0 (5.0-9.0) 05/11/20 01:32 Ur Specific Griffin 1.013 05/11/20 01:32 Urine Protein 100 mg/dL (NEGATIVE) H 05/11/20 01:32 Urine Glucose (UA) NEGATIVE mg/dL (NEGATIVE) 05/11/20 01:32 Urine Ketones NEGATIVE mg/dL (NEGATIVE) 05/11/20 01:32 Urine Blood NEGATIVE (NEGATIVE) 05/11/20 01:32 Urine Nitrite NEGATIVE (NEGATIVE) 05/11/20 01:32 Urine Bilirubin NEGATIVE (NEGATIVE) 05/11/20 01:32 Urine Urobilinogen NEGATIVE mg/dL (<2.0) 05/11/20 01:32 Ur Leukocyte Esterase NEGATIVE (NEGATIVE) 05/11/20 01:32 Urine WBC (Auto) 2 /HPF 05/11/20 01:32 Urine RBC (Auto) 0 /HPF 05/11/20 01:32 Squamous Epi Cells Auto <1 /HPF 05/11/20 01:32 Urine Mucus (Auto) RARE /LPF 05/11/20 01:32 Urine Ascorbic Acid NEGATIVE (NEGATIVE) 05/11/20 01:32 COVID-19 Source Cancelled 05/11/20 04:44 COVID-19 ([facility]) Cancelled 05/11/20 04:44 SARS-CoV-2 (PCR) NEGATIVE (NEGATIVE) 05/11/20 04:44 05/10/20 05/11/20 05/11/20 23:54 07:15 11:06 CK-MB (CK-2) 1.43 1.45 Troponin I < 0.012 0.015 < 0.012 NT-Pro-B Natriuret Pep 44 05/11/20 05/11/20 05/12/20 14:42 17:50 05:33 CK-MB (CK-2) 1.69 1.80 Troponin I < 0.012 < 0.012 NT-Pro-B Natriuret Pep 48 Impressions: Chest X-Ray 05/10/20 23:28 IMPRESSION: No definite acute intrathoracic disease. Plan Time Spent: Less than 30 Minutes Stroke Is this a Stroke Patient?: No Acute Heart Failure - Is this a Heart Failure Patient?: No
--- NOTE | 2020-05-15 12:32 | Pulmonary Function Test ---
Pulmonary Function Test Date of Procedure:: 05/11/20 - Received INDICATION:: Dyspnea Referring Provider: Dr. Brian Rowe Iron Worker Apprentice: Bree Henry HUB CUTTER APPRENTICE, SOCKET PULLER - Report Spirometry: Spirometry: pre-FVC: 1.90 L 39% post-FVC: 1.98 L 40% pre-FEV:1 1.30 L 33% post-FEV1: 1.39 L 35% pre-FEV1/FVC %: 69 post-FEV1/FVC%: 70 predicted: 81 [id number]%: 0.78 L 19% [id number]%: 1.00 L 25% Lung Volume: Total lung capacity: 3.00 L 43% Vital capacity: 2.08 L 42% Inspiratory capacity: 1.03 L FRC N2: 1.97 L 82% ERV: 0.21 L RV: 0.92 L 40% RV/TLC %:: 31 predicted 34 Diffusion Capactity: DLCO: 16.5 42% DLCO/VA: 6.19 150% Impression: Moderate obstructive ventilatory defect. (Obstructive defect is confirmed by decreased flow of the FEV1 and FEF 25-75%.) Minimal response to bronchodilator therapy. This does not preclude a clinical trial of bronchodilator therapy. A severe restrictive ventilatory defect is noted. (Restrictive defect may mask the degree of obstruction.) No hyperinflation. No air trapping. Severe decrease in diffusion capacity.
== END 2020-05-13 14:18 | disposition home health service (06) ==
LOC: ER 22:55 → EH 05-11 04:31 → 5 05-11 08:51
PROVIDERS: ADMIT Emergency Medicine; ATTEND Internal Medicine
DX: J43.9 Emphysema, unspecified (principal); R06.03 Acute respiratory distress; R09.02 Hypoxemia; E66.01 Morbid (severe) obesity due to excess calories; J99 Respiratory disorders in diseases classified elsewhere; G47.33 Obstructive sleep apnea (adult) (pediatric); I10 Essential (primary) hypertension; E11.9 Type 2 diabetes mellitus without complications; G44.40 Drug-induced headache, not elsewhere classified, not intractable; T46.3X5A Adverse effect of coronary vasodilators, initial encounter; J81.1 Chronic pulmonary edema; Z68.43 Body mass index [BMI] 50.0-59.9, adult; Z79.899 Other long term (current) drug therapy; Z87.891 Personal history of nicotine dependence; Z83.3 Family history of diabetes mellitus; Z82.49 Family history of ischemic heart disease and other diseases of the circulatory system; Z82.5 Family history of asthma and other chronic lower respiratory diseases; Z20.828 Contact with and (suspected) exposure to other viral communicable diseases; Z79.84 Long term (current) use of oral hypoglycemic drugs
CPT/HCPCS: 93005 ×2; 99285; 96374; 36415 ×3; 82553; 82962 ×3; 82550; 83735; 84443; 85025 ×2; 80048; 80053; 81001; 84484 ×2; 84481; 83036; 85379; 82803; 80061; 83880 ×2; 93306; 71045; 93010 ×2; 94729; 94727; 94660 ×3; 94060; 94640 ×3; U0003; A9270 ×35; J1644 ×3; J1940; J0360; J3490 ×4; C9803; 87635

== ENCOUNTER → 2020-07-25 | Outpatient (CLI) | payer MEDICARE, MEDICAID ==
[2020-07-25 10:39] LABS: ABSOLUTE BASOPHILS # (AUTO) 0.1 10^3/uL (0.0-0.2); ABSOLUTE EOSINOPHILS # (AUTO) 0.2 10^3/uL (0.0-0.6); ABSOLUTE LYMPHOCYTES (AUTO) 2.8 10^3/uL (0.5-4.7); ABSOLUTE MONOCYTES (AUTO) 0.7 10^3/uL (0.1-1.4); ABSOLUTE NEUT (AUTO) 6.7 10^3/uL (1.7-8.2); BASOPHILS % (AUTO) 0.5 % (0-2); HEMOGLOBIN 14.7 g/dL (13.5-17.0); LYMPHOCYTES % (AUTO) 26.9 % (13-45); MEAN CORPUSCULAR HEMOGLOBIN 30.7 pg (27.0-33.4); MEAN CORPUSCULAR HGB CONC 34.3 g/dL (32.0-36.0); MEAN CORPUSCULAR VOLUME 89 fl (80-97); MONOCYTES % (AUTO) 7.1 % (3-13); PLATELET COUNT 165 10^3/uL (150-450); RED BLOOD COUNT 4.81 10^6/uL (4.35-5.55); RED CELL DISTRIBUTION WIDTH 16.6 % (11.5-14.0); SEGMENTED NEUTROPHILS % (AUTO) 63.5 % (42-78); TOTAL CELLS COUNTED % (AUTO) 100 %; WHITE BLOOD COUNT 10.5 10^3/uL (4.0-10.5)
[2020-07-25 11:06] LABS: ALBUMIN 4.5 g/dL (3.5-5.0); ALKALINE PHOSPHATASE 94 U/L (38-126); ANION GAP 10 (5-19); ASPARTATE AMINO TRANSFERASE 22 U/L (17-59); BILIRUBIN,DIRECT 0.4 mg/dL (0.0-0.4); BILIRUBIN,TOTAL 1.5 mg/dL (0.2-1.3); BLOOD UREA NITROGEN 22 mg/dL (7-20); CALCIUM 9.5 mg/dL (8.4-10.2); CARBON DIOXIDE 28 mmol/L (22-30); CHLORIDE 104 mmol/L (98-107); CHOLESTEROL 166.04 mg/dL (0-200); GLUCOSE 120 mg/dL (75-110); POTASSIUM 4.1 mmol/L (3.6-5.0); TOTAL PROTEIN 7.8 g/dL (6.3-8.2); TRIGLYCERIDES 98 mg/dL (<150)
[2020-07-25 11:16] LABS: DIRECT LDL 100 mg/dL (<100)
== END ==
LOC: OD 08:41
PROVIDERS: ATTEND Family Medicine Geriatric Medicine
DX: I10 Essential (primary) hypertension (principal); E78.5 Hyperlipidemia, unspecified; J44.9 Chronic obstructive pulmonary disease, unspecified; R73.03 Prediabetes; Z79.899 Other long term (current) drug therapy
CPT/HCPCS: 36415; 80053; 80061; 83036; 83735; 84443; 85025

== ENCOUNTER → 2020-11-27 | Outpatient (CLI) | payer MEDICARE, MEDICAID ==
[2020-11-27 09:18] LABS: ALKALINE PHOSPHATASE 89 U/L (38-126); ANION GAP 6 (5-19); ASPARTATE AMINO TRANSFERASE 22 U/L (17-59); BILIRUBIN,DIRECT 0.1 mg/dL (0.0-0.4); BILIRUBIN,TOTAL 1.4 mg/dL (0.2-1.3); BLOOD UREA NITROGEN 17 mg/dL (7-20); CALCIUM 9.5 mg/dL (8.4-10.2); CARBON DIOXIDE 31 mmol/L (22-30); CHLORIDE 105 mmol/L (98-107); CHOLESTEROL 141.32 mg/dL (0-200); GLUCOSE 144 mg/dL (75-110); POTASSIUM 4.2 mmol/L (3.6-5.0); TOTAL PROTEIN 7.2 g/dL (6.3-8.2); TRIGLYCERIDES 61 mg/dL (<150)
[2020-11-27 09:29] LABS: DIRECT LDL 76 mg/dL (<100)
== END ==
LOC: LAB 08:20
PROVIDERS: ATTEND Family Medicine Geriatric Medicine
DX: E78.5 Hyperlipidemia, unspecified (principal); I10 Essential (primary) hypertension; Z79.899 Other long term (current) drug therapy
CPT/HCPCS: 36415; 80053; 80061